=== PATIENT | male | born 2000 | race Caucasian/White ===

== ENCOUNTER 2022-05-14 16:02 | Emergency (ER) | payer SELFPAY ==
[~2022-05-14] VITALS: Ht 165.1 cm; Wt 61.2 kg
[2022-05-14 16:26] VITALS: BP_SYST 139
--- NOTE | 2022-05-14 16:30 | NUR ---
Triaged pt and placed in waiting room. Pt stable.
[2022-05-14] MEDS ORDERED: LIDOCAINE/EPI 1% 1:100000 20 ML VIAL INJ ONE (18:30)
--- NOTE | 2022-05-14 19:00 | NUR ---
DR. WAY IN TRIAGE FOR LACERATION REPAIR
--- NOTE | 2022-05-14 19:10 | NUR ---
PT WALKED IN C/O LACERATION TO RIGHT CALF THAT OCCURRED TODAY AFTER GETTING CUT WITH A GLASS BOTTLE. UTD ON TDAP.
--- NOTE | 2022-05-14 19:17 | NUR ---
WOUND CLEANSED AND DRESSING APPLIED BY BLANKA RAMÍREZ
[2022-05-14 19:23] VITALS: BP_SYST 127
--- NOTE | 2022-05-14 19:23 | NUR ---
Patient given written and verbal discharge instructions and verbalizes understanding. ER MD discussed with patient the results and treatment provided. Patient in stable condition. ID arm band removed. Rx of NONE given. Patient educated on pain management and to follow up with PMD. Pain Scale 0/10. Opportunity for questions provided and answered. Medication side effect fact sheet provided.
== END 2022-05-14 19:23 | disposition home or self-care (01) ==
LOC: SED 16:02
DX: S81.811A Laceration without foreign body, right lower leg, initial encounter (principal); Z79.899 Other long term (current) drug therapy; W20.8XXA Other cause of strike by thrown, projected or falling object, initial encounter; Y93.89 Activity, other specified; Y92.89 Other specified places as the place of occurrence of the external cause; Y99.8 Other external cause status
CPT/HCPCS: 73590-TC; 99283